=== PATIENT | male | born 2000 | race African-American/Black ===

== ENCOUNTER 2021-02-05 09:32 | Emergency (ER) | payer BC ==
[~2021-02-05] VITALS: Ht 190.5 cm; Wt 90.0 kg
[2021-02-05] MEDS ORDERED: CEPHALEXIN 250MG CAPSULE PO ONE (09:45)
[2021-02-05] MEDS ORDERED: IBUPROFEN 600MG TABLET PO ONE (09:45)
[2021-02-05] MEDS ORDERED: TETANUS, DIPHTHERIA, PERTUSSIS VAC/PF 0.5ML (>7YR OLD) IM ONE (09:45)
[2021-02-05] MEDS ORDERED: CEPH500C2 MT (09:46)
[2021-02-05] MEDS ORDERED: IBUP-2029 MT (09:46)
[2021-02-05 10:14] VITALS: BP 120/68
== END 2021-02-05 10:15 | disposition home or self-care (01) ==
LOC: ER 09:32
DX: L02.213 Cutaneous abscess of chest wall (principal)
CPT/HCPCS: 99283